=== PATIENT | female | born 1970 | race American Indian/Alaskan Native ===

== ENCOUNTER 2019-03-01 05:55 | Observation (INO) | payer OTHER ==
--- NOTE | 2019-02-21 11:10 | Anesthesia Consultation ---
Anesthesia Consult and Med Hx Date of service: 02/21/19 - Airway Anesthetic Teeth Evaluation: Dentures ROM Head & Neck: Adequate Mental/Hyoid Distance: Adequate Mallampati Class: Class II Intubation Access Assessment: Good - Pulmonary Exam CTA: Yes - Cardiac Exam Cardiac Exam: RRR - Pre-Operative Health Status ASA Pre-Surgery Classification: ASA2 Proposed Anesthetic Plan: General Nerve Block: Possible TAP Block - Pulmonary Hx Smoking: Yes (1/2 pack a day ) - Cardiovascular System Hx Hypertension: No - Central Nervous System Hx Psychiatric Problems: No - Other Systems Hx Alcohol Use: Yes (Occas) Hx Substance Use: Yes (Occas marijuana) Hx Cancer: No
[2019-02-21 11:13] LABS: BUN/Creatinine Ratio 16; Blood Urea Nitrogen 11 mg/dL (7-17); Calcium 8.6 mg/dL (8.4-10.2); Hematocrit 31.3 % (30.3-42.9); Hemoglobin 9.7 gm/dl (10.1-14.3); Hemolysis Index 7; Mean Corpuscular HGB Conc 31 % (30-34); Mean Corpuscular Volume 80 fl (79-97); Platelet Count 296 K/mm3 (140-440); Red Blood Count 3.92 M/mm3 (3.65-5.03); Red Cell Distribution Width 18.2 % (13.2-15.2)
[2019-02-21 12:27] LABS: Basophils % (Manual) 0 % (0.0-1.8); Eosinophils % (Manual) 0 % (0.0-4.3); Total Cells Counted 100
[2019-02-21 12:29] LABS: Anisocytosis Few; Ovalocytes Few; Platelet Estimate Consistent w Auto; Poikilocytosis Few
--- NOTE | 2019-02-28 15:11 | History and Physical Report ---
History of Present Illness Date of examination: 02/21/19 History of present illness: Patient has been reassessed/reevaluated. H&P has been reviewed. No interval changes. This is a 48 years old female who presents with menstrual disorder. The symptoms began 4-6 months ago. She complains of heavy bleeding, dysmenorrhea, clotting, history of fibroids, fatigue and cramping, but denies irregular menses, mid-cycle spotting, lack of menses, history of ovarian cysts, history of thyroid disease, history of PCOS, history of bleeding disorder and lightheadedness. Menstrual flow lasts > 7 days. . She complains of pelvic pressure. Patient's work up has included an US of pelvis. which revealed a 7.2 cm myoma. Patient's symptoms when present disrupts her normal daily activities Patient desires definitive treatment Vital Signs: Patient Profile: 48 Years Old Female Height: 69 inches (175.26 cm) Weight: 186 pounds (84.55 kg) BMI: 27.46 BSA: 2.00 Past History : 3 Term Births: 1 Premature Births: 0 Living Children: 1 Para: 1 Mult. Births: 0 Prev : 0 Aborta: 2 Elect. Ab: 1 Spont. Ab: 1 Ectopics: 0 # 1 Weeks Gestation: 40 Delivery type: Infant Sex: Male weight: 8; [employer] History Uterine Surgery (not C/S): negative Operations: D&C:EAb Hospitalizations: negative Anesthesia Complications: negative Abnormal PAP: negative Uterine Anomaly: positive fibroids LISHA Exposure: negative Infertility: negative Infection History HIV Risk Eval: no Personal hx. of genital herpes: no Hx of STD: chlamydia Current Allergies (reviewed today): No known allergies Past Medical History: hyadrenitis Fibroids Past Surgical History: D&C:EAB Family History Summary: Mother (biol.) - Has Family History Breast Cancer - mother dx age 55. chemo, rt lumpectomy, now 65 alive - Entered On: 10/21/2016 Mother (biol.) - Has Family History of Hypertension - mother and maternal side of family - Entered On: 10/21/2016 Mother (biol.) - Has Family History of Diabetes - mother and mat aunt. t2dm - Entered On: 10/21/2016 Social History: Patient is single Smoking History: Patient currently smokes every day. Risk Factors: Smoked Tobacco Use: Current every day smoker Smokeless Tobacco Use: Never Passive smoke exposure: yes Drug use: no HIV high-risk behavior: no Alcohol use: yes Exercise: yes Seatbelt use: 100 % Review of Systems General Complains of fatigue. Denies fever, chills, sweats, anorexia, weakness, malaise, weight loss and sleep disorder. Complains of menorrhagia, pelvic pain and painful periods. Denies vaginal discharge, incontinence, dysuria, hematuria, urinary frequency, amenorrhea, abnormal vaginal bleeding, genital sores, decreased libido, painful sex, urinary urgency, hot flashes, vaginal dryness, vaginal itching and vaginal odor. CV Denies chest pains, palpitations, syncope, dyspnea on exertion, orthopnea, PND and peripheral edema. Resp Denies cough, dyspnea at rest, excessive sputum, hemoptysis, wheezing and pleurisy. GI Denies nausea, vomiting, diarrhea, constipation, change in bowel habits, abdominal pain, melena, hematochezia, jaundice, gas/bloating, indigestion/heartburn, dysphagia and odynophagia. Breast Denies left breast lump, right breast lump, nipple discharge, bloody discharge from nipple, breast pain, abnormal mammogram and breast enlargement. Psych Denies depression, anxiety, irritability and mood swings. Past History Past Medical History: other (SEE HPI) Past Surgical History: Other (SEE HPI) Social history: single, smoking, full code, other (SEE HPI) Family history: other (SEE HPI) Medications and Allergies Allergies Allergy/AdvReac Type Severity Reaction Status Date / Time No Known Allergies Allergy Verified 02/21/19 11:17 Home Medications Medication Instructions Recorded Confirmed Last Taken Type Norgestimate-Ethinyl Estradiol 1 tab PO DAILY 02/20/19 03/01/19 03/01/19 04:45 History [Sprintec 28 Day Tablet] Active Meds: Active Medications Celecoxib (Celebrex) 200 mg PO PREOP NR Stop: 03/01/19 22:00 Fentanyl (Sublimaze) 100 mcg IV ONCE PRN PRN Reason: sedation for nerve block Gabapentin (Neurontin) 300 mg PO PREOP NR Stop: 03/01/19 23:59 Lactated Ringer's (Lactated Ringers) 1,000 mls @ 100 mls/hr IV DIRECT BRYANT Midazolam HCl (Versed) 2 mg IV PREOP NR Stop: 03/01/19 23:59 Review of Systems Constitutional: other (SEE HPI) Exam - Physical Exam Narrative exam: HEENT: normocephalic, no lesions or deformities Skin no ulcers, xanthomas Breasts: no masses or nipple discharge Abdomen: soft, non-tender, no masses, bowel sounds normal Neuro: no gross anomalities Extremities: no clubbing, cyanosis, or edema [employer] Exams Vulva/Vagina: normal appearance, no discharge, lesions. No evidence of cystocele or rectocele. Cervix: normal appearance, no lesions, no discharge Uterus: Enlarged uterus 12 to 14 weeks size Adnexae: no masses or tenderness Rectovaginal: exam defered - Constitutional Vitals: Temp Pulse Resp BP Pulse Ox 98.7 F 64 20 128/82 100 02/21/19 10:46 02/21/19 10:46 02/21/19 10:46 02/21/19 10:46 02/21/19 10:46 Results - Labs CBC & Chem 7: 02/21/19 10:30 02/21/19 10:30 Assessment and Plan - Patient Problems (1) Intramural leiomyoma of uterus Current Visit: No Status: Acute Plan to address problem: Diagnosis explained to patient . Questions answered. Discussed with patient various medical, surgical and radiological therapies common for treatment including myomectomy hysterectomy and uterine artery embolization Patient's symptoms when present disrupts her normal daily activities Patient desires definitive treatment. .Patient desires to retain future fertility. She desires myomectomy. Discussed risks and benefits of laparotomy and robotic assisted approaches Patient desires robotic assisted myomectomy Discuss the risks of the surgery including infection, bleeding possibly heavy enough to require a blood transfusion, possible damage to bowel, bladder or ureter. Patient understands that there is a possibility that a hysterectomy maybe indicated for severe bleeding not resoved with conservative measures.Patient advised the small risks of spreading of malignancy if morcellator is used during the surgery patient understands and approve of use if necessary. All her questions were answered. Patient understands and desires to proceed. (2) Menorrhagia Current Visit: No Status: Acute Qualifiers: Menorrahagia type: with regular cycle Qualified Code(s): N92.0 - Excessive and frequent menstruation with regular cycle Plan to address problem: Probably secondary to # 1 (3) Hidradenitis suppurativa Current Visit: No Status: Chronic (4) Smoker Current Visit: No Status: Chronic
[~2019-03-01 05:55] MED LIST: GABAPENTIN 300 MG CAP PO NR; LACTATED RINGERS 1,000 ML IV SCH; MIDAZOLAM 2 MG/2 ML INJ IV NR; ceFAZolin/Water 2 GM/20 ML 2 GM/20 ML SYRINGE IV NR
[2019-03-01] MEDS ORDERED: LACTATED RINGERS 1,000 ML IV SCH (06:00)
[2019-03-01] MEDS ORDERED: GABAPENTIN 300 MG CAP PO NR (06:00)
[2019-03-01] MEDS ORDERED: MIDAZOLAM 2 MG/2 ML INJ IV NR (06:00)
[2019-03-01] MEDS ORDERED: fentaNYL 100 MCG/2 ML INJ IV PRN (06:00)
[2019-03-01] MEDS ORDERED: CELECOXIB 200 MG CAP PO NR (06:00)
[2019-03-01] MEDS ORDERED: ceFAZolin/Water 2 GM/20 ML 2 GM/20 ML SYRINGE IV NR (08:00)
[2019-03-01] MEDS ORDERED: BUPIVACAINE-EPINEPHRINE/PF 0.25%-1:200,000 (30 ML) VIAL INFILTRATI ONE ×2 (08:10→08:14)
[2019-03-01] MEDS ORDERED: VASOPRESSIN 20 UNIT/1 ML INJ ONE (08:10)
[2019-03-01] MEDS ORDERED: SODIUM CHLORIDE 0.9% 100 ML ONE (08:10)
[2019-03-01] MEDS ORDERED: dexAMETHasone 4 MG/ML VIAL ONE (08:13)
[2019-03-01] MEDS ORDERED: LIDOCAINE (1%) 10 MG/1 ML VIAL 20 ML MDV ONE (08:13)
[2019-03-01] MEDS ORDERED: HYDROmorphone 1 MG/1 ML INJ ONE (08:15)
[2019-03-01] MEDS ORDERED: PROPOFOL 200 MG/20 ML VIAL IV ONE (08:16)
[2019-03-01] MEDS ORDERED: LIDOCAINE MPF (2%) 20 MG/1 ML VIAL 5 ML ONE (08:16)
[2019-03-01] MEDS ORDERED: ROCURONIUM 50 MG/5 ML INJ IV ONE (08:16)
[2019-03-01] MEDS ORDERED: CITRIC ACID-SOD CITRATE 500 ML IV ONE (08:24)
--- NOTE | 2019-03-01 08:29 | Anesthesia Day of Surgery ---
Anesthesia Day of Surgery - Day of Surgery Patient Examined: Yes Patient H&P Reviewed: Yes Patient is NPO: Yes
[2019-03-01] MEDS ORDERED: VASOPRESSIN 20 UNIT/1 ML INJ IM ONE (09:51)
[2019-03-01] MEDS ORDERED: SODIUM CHLORIDE 0.9% IRRIG SOLN 2000 ML IR ONE (09:52)
[2019-03-01] MEDS ORDERED: SODIUM CHLORIDE 0.9% 100 ML IVPB IV ONE (09:52)
[2019-03-01] MEDS ORDERED: dexAMETHasone 20 MG/5 ML VIAL ONE (10:22)
[2019-03-01] MEDS ORDERED: ONDANSETRON 4 MG/2 ML INJ ONE (10:23)
[2019-03-01] MEDS ORDERED: GLYCOPYRROLATE 0.4 MG/2 ML INJ ONE (10:58)
[2019-03-01] MEDS ORDERED: NEOSTIGMINE 10MG/10 ML INJ MDV ONE (10:58)
--- NOTE | 2019-03-01 11:30 | Operative Report ---
Operative Report Operative Report: Date of procedure: 03/01/2019 Pre-operative diagnosis: Symptomatic leiomyomata Post-operative diagnosis: Same Procedure name(s): Robotic-assisted myomectomy Surgeon: Nghia Rodriguez MD Still Operator Whiskey: Jie Fontenot, certified court/medical interpreter Anesthesia: General EBL: 50 mL Complications: None Findings: Patient had a uterus approximately 14-16 weeks in size with 1 large myoma approximately 7-1/2 cm in diameter and normal. Tubes and ovaries bilaterally Specimen(s): Leiomyomata Procedure: Patient taken operating room where general endotracheal anesthesia was induced difficulty. She was placed in dorsal lithotomy position prepped and draped in usual normal sterile fashion for robotic procedure. A Mosley catheter was placed in urinary bladder without difficulty. Speculum placed in the vagina. A medium Genapsys V care uterine manipulator was placed without any difficulty. Then attention was switched to the patient's abdomen. Supra-umbilical incision was made with a knife. Spread with a hemostat. A 10-12 Trocar was placed in this incision while lifting out anterior abdominal wall under direct visualization. Intra-abdominal cavity was entered without any evidence of internal organ damage. Patient was insufflated approximately 3 and half liters of CO2 gas. Patient's pelvic findings noted above. The patient was perceived to be a candidate for robotic procedure. On either side of the midline trocar placement approximately 8 cm from the trocar the 8 mm robotic trocars was placed under direct visualization with no signs of internal organ damage. Still Operator Whiskey ports were placed on the right lower quadrant 2 fingerbreadths above the iliac crest 10-12 trocar. The third 8 millimeter trocar for robotic arm was placed left lower quadrant under direct visualization with no evidence of internal organ damage patient was then placed in extreme Trendelenburg. At this time the da Kianna robot was that on the patient's left side and normal fashion. At that time I my place under the operating brar. Pitressin was then placed to the base of the large myoma approximately 20 mL. I incised the serosa midline above the anterior myoma. The myoma was then removed from its bed using the robotic scissors by incising through the capsule and manipulating it using both the gynecological assistant port tenaculum and the tenaculum placed on the robotic third arm. The myoma was successfully removed with minimal bleeding. This large myoma was in place and patient's anterior cul-de-sac. The endometrial cavity was entered with removal of the myoma. At this time try to discover any other myomas but I did detect any others. The defect was closed in layers using #1 Vicryl with care not to enter the endometrial cavity. The serosal layer was closed using a baseball stitch to try to minimize postoperative adhesions. This closure was hemostatic. Dennise was then placed over the incision to assist with preventing postoperative bleeding. Also Interceed was place over the incision in order to minimize postoperative adhesions. Attention was then switched to the myoma. The morcellator was placed through the gynecological assistant port. The myoma was then successfully morcellated with only minimal spillage portions of the myoma. Small portions of bone were then grasped Grassel also removed through the gynecological assistant port. The patient's pelvic copiously irrigated and suctioned. The incision was inspected and found be hemostatic. All instruments were then removed. The trocar incisions were closed. The larger incision closed in layers with 0 Vicryl and 4-0 Monocryl. Small incision closed subcuticular with 4-0 Monocryl. The patient tolerated procedure well. She was awakened in operating room and accompanied to recovery room in good condition.
[2019-03-01] MEDS: HYDROmorphone 1 MG/1 ML INJ IV PRN ×2 (12:13→12:23)
[2019-03-01] MEDS ORDERED: LACTATED RINGERS 1,000 ML ONE (12:22)
[2019-03-01] MEDS ORDERED: MAGNESIUM HYDROXIDE (MOM) ORAL LIQD UDC PO PRN (13:45)
--- NOTE | 2019-03-01 14:18 | Post Anesthesia Evaluation ---
- Post Anesthesia Evaluation Patient Participated: Yes Airway Patent: Yes Stable Respiratory Function: Yes Nausea/Vomiting: No Temp > 96.8F: Yes Pain Manageable: Yes Adequeate Hydration: Yes Anesthesia Complications: No
[2019-03-01] MEDS: KETOROLAC 30 MG/1 ML INJ IV SCH ×2 (15:44→23:32)
--- NOTE | 2019-03-01 18:04 | Event Note ---
Date: 03/01/19 Day of surgery. Discuss operative findings with patient and questions answered. Patient without fever. Will ambulate in halls this evening. Good urine output. Will remove the Mosley catheter. Patient tolerating regular diet well We will continue routine postoperative care.
[2019-03-01] MEDS: D5W/LACTATED RINGERS 1,000 ML IV SCH (18:57)
[2019-03-01] MEDS: ceFAZolin/NS 1 GM/50 ML 1 GM/50 ML BAG IV SCH (21:21)
[2019-03-01] MEDS: DOCUSATE SODIUM 100 MG CAP PO SCH (21:22)
[2019-03-01] MEDS: HYDROcodone/ACETAMINOPHEN 5-325 MG TAB PO PRN (21:29)
[2019-03-02] MEDS: KETOROLAC 30 MG/1 ML INJ IV SCH (01:45)
[2019-03-02] MEDS: D5W/LACTATED RINGERS 1,000 ML IV SCH (02:53)
[2019-03-02 03:46] LABS: Hematocrit 26.8 % (30.3-42.9); Hemoglobin 8.4 gm/dl (10.1-14.3)
[2019-03-02] MEDS: ceFAZolin/NS 1 GM/50 ML 1 GM/50 ML BAG IV SCH (05:41)
[2019-03-02] MEDS: HYDROcodone/ACETAMINOPHEN 5-325 MG TAB PO PRN ×2 (05:42→09:34)
--- NOTE | 2019-03-02 09:10 | Short Stay Summary ---
Short Stay Documentation Date of service: 03/02/19 - History Past Medical History: other (SEE HPI) Past Surgical History: Other (SEE HPI) Social history: single, smoking, full code, other (SEE HPI) - Allergies and Medications Current Medications: Allergies No Known Allergies Allergy (Verified 02/21/19 11:17) Home Medications Medication Instructions Recorded Confirmed Last Taken Type Norgestimate-Ethinyl Estradiol 1 tab PO DAILY 02/20/19 03/01/19 03/01/19 04:45 History [Sprintec 28 Day Tablet] Ibuprofen [Motrin 800 MG tab] 800 mg PO Q6H PRN #30 tablet 03/01/19 Unknown Rx oxyCODONE /ACETAMINOPHEN [Percocet 1 - 2 tab PO Q4H PRN #20 tablet 03/01/19 Unknown Rx 5/325 mg] Ferrous Sulfate [Feosol 325 MG tab] 325 mg PO BID #60 tablet 03/02/19 Unknown Rx Active Medications Acetaminophen/Hydrocodone Bitart (Bayard 5/325) 2 each PO Q4H PRN PRN Reason: Pain, Moderate (4-6) Last Admin: 03/02/19 05:42 Dose: 2 each Documented by: Docusate Sodium (Colace) 100 mg PO BID BRYANT Last Admin: 03/01/19 21:22 Dose: 100 mg Documented by: Dextrose/Lactated Ringer's ([email or web address]) 1,000 mls @ 125 mls/hr IV DIRECT BRYANT Last Admin: 03/02/19 02:53 Dose: 125 mls/hr Documented by: Magnesium Hydroxide (Milk Of Magnesia) 30 ml PO Q4H PRN PRN Reason: Constipation - Physical exam General appearance: no acute distress HEENT: Atraumatic Breasts: deferred Heart: Regular rate Gastrointestinal: hypoactive bowel sounds, tenderness (appropriate postoperatively), distended (slightly) Female Genitourinary: deferred Rectal Exam: deferred Extremities: no ischemia Neurological: Normal gait, Normal speech, Strength at 5/5 X4 ext - Brief post op/procedure progress note Date of procedure: 03/02/19 (see operative note) - Hospital course Hospital course: Patient was admitted and underwent above procedure without complications. Her post operative course was benign she was afebrile throughout. Patient postoperative hematocrit was in an acceptable range. Patient had no orthostatic symptoms. Patient was tolerating regular diet and voiding without difficulty at time of discharge. Patient incision was healing well without evidence of infection. - Disposition Condition at discharge: Good Disposition: DC-01 TO HOME OR SELFCARE - Discharge Diagnoses (1) Intramural leiomyoma of uterus Status: Acute (2) Menorrhagia Status: Acute Qualifiers: Menorrahagia type: with regular cycle Qualified Code(s): N92.0 - Excessive and frequent menstruation with regular cycle (3) Hidradenitis suppurativa Status: Chronic (4) Smoker Status: Chronic Short Stay Discharge Plan Activity: advance as tolerated Diet: regular Wound: open to air Additional Instructions: Patient instructed no heavy lifting for 4 weeks. No intercourse for 8 weeks. Call office for fever, chills, nausea, vomiting or pain not controlled by pain medications. Ambulation is encouraged. Patient's call for heavy vaginal bleeding. Patient instructed to keep her scheduled post operative office appointment. Follow up with: ALESSANDRO HYDE MD [Primary Care Provider] - 7 Days Prescriptions: Ferrous Sulfate [Feosol 325 MG tab] 325 mg PO BID #60 tablet Ibuprofen [Motrin 800 MG tab] 800 mg PO Q6H PRN #30 tablet PRN Reason: Pain oxyCODONE /ACETAMINOPHEN [Percocet 5/325 mg] 1 - 2 tab PO Q4H PRN #20 tablet PRN Reason: Pain, Moderate
[2019-03-02] MEDS: DOCUSATE SODIUM 100 MG CAP PO SCH (09:34)
[2019-03-02 11:27] VITALS: BP 127/67
== END 2019-03-02 11:30 | disposition home or self-care (01) ==
LOC: OR 05:55 → OB 11:31
PROVIDERS: ADMIT Obstetrics & Gynecology; ATTEND Obstetrics & Gynecology
DX: D25.1 Intramural leiomyoma of uterus (principal); N92.0 Excessive and frequent menstruation with regular cycle; L73.2 Hidradenitis suppurativa; N94.6 Dysmenorrhea, unspecified; F17.200 Nicotine dependence, unspecified, uncomplicated; Z98.890 Other specified postprocedural states
CPT/HCPCS: 36415; 58545; 64450; 80048; 81025; 85007; 85014; 85018; 85025; 86850; 86900; 86901; 88305; 96365; 96366; 96375; 96376; A4217; C1765; C1782; G0378; J0690; J1100; J1170; J1885; J2250; J2405; J2704; J2710; J3010; J7120; J7121; S2900

== ENCOUNTER 2019-04-13 23:34 | Emergency (ER) | payer OTHER ==
[2019-04-14 01:04] LABS: Hematocrit 37.8 % (30.3-42.9); Hemoglobin 12.2 gm/dl (10.1-14.3); Mean Corpuscular HGB Conc 32 % (30-34); Mean Corpuscular Volume 81 fl (79-97); Platelet Count 256 K/mm3 (140-440); Red Blood Count 4.69 M/mm3 (3.65-5.03)
[2019-04-14 01:29] LABS: Alanine Aminotransferase 16 units/L (7-56); Albumin 4.2 g/dL (3.9-5); BUN/Creatinine Ratio 16; Blood Urea Nitrogen 13 mg/dL (7-17); Calcium 9.2 mg/dL (8.4-10.2); Hemolysis Index 2
[2019-04-14 02:48] LABS: Bacteria,Urine 1+ /HPF (Negative); Bilirubin,Urine NEG (Negative); Blood,Urine MOD (Negative); Color,Urine Yellow (Yellow); Mucus,Urine 3+ /HPF; Urobilinogen,Urine < 2.0 mg/dL (<2.0)
--- NOTE | 2019-04-14 03:47 | Emergency Department Report ---
ED Abdominal Pain HPI - General Chief Complaint: Abdominal Pain Stated Complaint: ABD PAIN Time Seen by Provider: 04/14/19 03:29 Source: patient Mode of arrival: Ambulatory Limitations: No Limitations - History of Present Illness Initial Comments: 48-year-old -K[place] female presents to the emergency room reporting that she started having abdominal pain and vomiting after eating a hamburger. Patient reports at the time the pain was constant and diffuse with sharp pain. Patient reports now she is not nauseated pain is improved last vomited at 12 AM. Patient denies any past medical history currently takes control and has no known drug allergies. MD Complaint: abdominal pain Onset/Timin -: hour(s) Location: diffuse Radiation: none Migration to: no migration Severity scale (0 -10): 9 Quality: sharp Consistency: constant Improves With: nothing Worsens With: nothing Context: possible food poisoning Associated Symptoms: nausea, vomiting. denies: diarrhea, fever, chills, constipation, dysuria, hematemesis, hematochezia - Related Data Home Medications Medication Instructions Recorded Confirmed Last Taken Norgestimate-Ethinyl Estradiol 1 tab PO DAILY 02/20/19 03/01/19 03/01/19 04:45 [Sprintec 28 Day Tablet] Previous Rx's Medication Instructions Recorded Last Taken Type Ibuprofen [Motrin 800 MG tab] 800 mg PO Q6H PRN #30 tablet 03/01/19 Unknown Rx oxyCODONE /ACETAMINOPHEN [Percocet 1 - 2 tab PO Q4H PRN #20 tablet 03/01/19 Unknown Rx 5/325 mg] Ferrous Sulfate [Feosol 325 MG tab] 325 mg PO BID #60 tablet 03/02/19 Unknown Rx Allergies Allergy/AdvReac Type Severity Reaction Status Date / Time No Known Allergies Allergy Verified 02/21/19 11:17 ED Review of Systems ROS: Stated complaint: ABD PAIN Other details as noted in HPI Comment: All other systems reviewed and negative ED Past Medical Hx - Past Medical History Previous Medical History?: Yes Hx Congestive Heart Failure: No Hx Diabetes: No Hx GERD: Yes (Infrequently) Hx Headaches / Migraines: Yes Hx Asthma: No Hx COPD: No - Surgical History Additional Surgical History: Fibroids - Social History Smoking Status: Current Every Day Smoker Substance Use Type: Marijuana - Medications Home Medications: Home Medications Medication Instructions Recorded Confirmed Last Taken Type Norgestimate-Ethinyl Estradiol 1 tab PO DAILY 02/20/19 03/01/19 03/01/19 04:45 History [Sprintec 28 Day Tablet] Ibuprofen [Motrin 800 MG tab] 800 mg PO Q6H PRN #30 tablet 03/01/19 Unknown Rx oxyCODONE /ACETAMINOPHEN [Percocet 1 - 2 tab PO Q4H PRN #20 tablet 03/01/19 Unknown Rx 5/325 mg] Ferrous Sulfate [Feosol 325 MG tab] 325 mg PO BID #60 tablet 03/02/19 Unknown Rx ED Physical Exam - General Limitations: No Limitations General appearance: alert, in no apparent distress - Head Head exam: Present: atraumatic, normocephalic - Eye Eye exam: Present: normal appearance - ENT ENT exam: Present: normal exam - Neck Neck exam: Present: normal inspection - Respiratory Respiratory exam: Present: normal lung sounds bilaterally. Absent: respiratory distress - Cardiovascular Cardiovascular Exam: Present: regular rate, normal rhythm. Absent: systolic murmur, diastolic murmur, rubs, gallop - GI/Abdominal GI/Abdominal exam: Present: soft, normal bowel sounds. Absent: distended, tenderness - Extremities Exam Extremities exam: Present: normal inspection - Neurological Exam Neurological exam: Present: alert, oriented X3 - Psychiatric Psychiatric exam: Present: normal affect, normal mood - Skin Skin exam: Present: warm, dry, intact, normal color. Absent: rash ED Course Vital Signs 04/13/19 04/14/19 23:57 04:10 Temperature 97.7 F Pulse Rate 66 81 Respiratory 20 18 Rate Blood Pressure 167/98 Blood Pressure 118/67 [Left] O2 Sat by Pulse 99 98 Oximetry ED Medical Decision Making - Lab Data Result diagrams: 04/14/19 00:37 04/14/19 00:37 Laboratory Tests 04/14/19 04/14/19 04/14/19 00:37 00:37 00:37 WBC 11.7 H RBC 4.69 Hgb 12.2 Hct 37.8 MCV 81 MCH 26 L MCHC 32 RDW 22.0 H Plt Count 256 Add Manual Diff Complete Total Counted 100 Seg Neuts % (Manual) 79.0 H Band Neutrophils % 0 Lymphocytes % (Manual) 17.0 Reactive Lymphs % (Man) 0 Monocytes % (Manual) 4.0 Eosinophils % (Manual) 0 Basophils % (Manual) 0 Metamyelocytes % 0 Myelocytes % 0 Promyelocytes % 0 Blast Cells % 0 Nucleated RBC % Not Reportable Seg Neutrophils # Man 9.2 H Band Neutrophils # 0.0 Lymphocytes # (Manual) 2.0 Abs React Lymphs (Man) 0.0 Monocytes # (Manual) 0.5 Eosinophils # (Manual) 0.0 Basophils # (Manual) 0.0 Metamyelocytes # 0.0 Myelocytes # 0.0 Promyelocytes # 0.0 Blast Cells # 0.0 WBC Morphology Not Reportable Hypersegmented Neuts Not Reportable Hyposegmented Neuts Not Reportable Hypogranular Neuts Not Reportable Smudge Cells Not Reportable Toxic Granulation Not Reportable Toxic Vacuolation Not Reportable Dohle Bodies Not Reportable Pelger-Huet Anomaly Not Reportable Gavino Rods Not Reportable Platelet Estimate Consistent w auto Clumped Platelets Not Reportable Plt Clumps, EDTA Not Reportable Large Platelets Not Reportable Giant Platelets Not Reportable Platelet Satelliting Not Reportable Plt Morphology Comment Not Reportable RBC Morphology Not Reportable Dimorphic RBCs Not Reportable Polychromasia Not Reportable Hypochromasia Not Reportable Poikilocytosis Not Reportable Anisocytosis Few Microcytosis Few Macrocytosis Not Reportable Spherocytes Not Reportable Pappenheimer Bodies Not Reportable Sickle Cells Not Reportable Target Cells Not Reportable Tear Drop Cells Not Reportable Ovalocytes Not Reportable Helmet Cells Not Reportable [place] Bodies Not Reportable [place] Rings Not Reportable Mayte Cells Not Reportable Bite Cells Not Reportable Crenated Cell Not Reportable Elliptocytes Few Acanthocytes (Spur) Not Reportable Rouleaux Not Reportable Hemoglobin C Crystals Not Reportable Schistocytes Not Reportable Malaria parasites Not Reportable Isaias Bodies Not Reportable Hem Pathologist Commnt No Sodium 139 Potassium 4.3 Chloride 102.5 Carbon Dioxide 23 Anion Gap 18 BUN 13 Creatinine 0.8 Estimated GFR > 60 BUN/Creatinine Ratio 16 Glucose 156 H Calcium 9.2 Total Bilirubin 0.20 AST 26 ALT 16 Alkaline Phosphatase 79 Total Protein 8.1 Albumin 4.2 Albumin/Globulin Ratio 1.1 HCG, Qual Negative Urine Color Urine Turbidity Urine pH Ur Specific Groom Urine Protein Urine Glucose (UA) Urine Ketones Urine Blood Urine Nitrite Urine Bilirubin Urine Urobilinogen Ur Leukocyte Esterase Urine WBC (Auto) Urine RBC (Auto) U Epithel Cells (Auto) Urine Bacteria (Auto) Urine Mucus 04/14/19 Unknown WBC RBC Hgb Hct MCV MCH MCHC RDW Plt Count Add Manual Diff Total Counted Seg Neuts % (Manual) Band Neutrophils % Lymphocytes % (Manual) Reactive Lymphs % (Man) Monocytes % (Manual) Eosinophils % (Manual) Basophils % (Manual) Metamyelocytes % Myelocytes % Promyelocytes % Blast Cells % Nucleated RBC % Seg Neutrophils # Man Band Neutrophils # Lymphocytes # (Manual) Abs React Lymphs (Man) Monocytes # (Manual) Eosinophils # (Manual) Basophils # (Manual) Metamyelocytes # Myelocytes # Promyelocytes # Blast Cells # WBC Morphology Hypersegmented Neuts Hyposegmented Neuts Hypogranular Neuts Smudge Cells Toxic Granulation Toxic Vacuolation Dohle Bodies Pelger-Huet Anomaly Gavino Rods Platelet Estimate Clumped Platelets Plt Clumps, EDTA Large Platelets Giant Platelets Platelet Satelliting Plt Morphology Comment RBC Morphology Dimorphic RBCs Polychromasia Hypochromasia Poikilocytosis Anisocytosis Microcytosis Macrocytosis Spherocytes Pappenheimer Bodies Sickle Cells Target Cells Tear Drop Cells Ovalocytes Helmet Cells [place] Bodies [place] Rings [place] Cells Bite Cells Crenated Cell Elliptocytes Acanthocytes (Spur) Rouleaux Hemoglobin C Crystals Schistocytes Malaria parasites Isaias Bodies Hem Pathologist Commnt Sodium Potassium Chloride Carbon Dioxide Anion Gap BUN Creatinine Estimated GFR BUN/Creatinine Ratio Glucose Calcium Total Bilirubin AST ALT Alkaline Phosphatase Total Protein Albumin Albumin/Globulin Ratio HCG, Qual Urine Color Yellow Urine Turbidity Cloudy Urine pH 8.0 H Ur Specific Groom 1.025 Urine Protein 30 mg/dl Urine Glucose (UA) Neg Urine Ketones Tr Urine Blood Mod Urine Nitrite Neg Urine Bilirubin Neg Urine Urobilinogen < 2.0 Ur Leukocyte Esterase Neg Urine WBC (Auto) 5.0 Urine RBC (Auto) 129.0 U Epithel Cells (Auto) 12.0 Urine Bacteria (Auto) 1+ Urine Mucus 3+ - Medical Decision Making 48-year-old -[place] female presents to the emergency room reporting that she started having abdominal pain and vomiting after eating a hamburger. Patient reports at the time the pain was constant and diffuse with sharp pain. Patient reports now she is not nauseated pain is improved last vomited at 12 AM. Patient denies any past medical history currently takes control and has no known drug allergies. Critical care attestation.: If time is entered above; I have spent that time in minutes in the direct care of this critically ill patient, excluding procedure time. ED Disposition Clinical Impression: Abdominal pain Qualifiers: Abdominal location: generalized Qualified Code(s): R10.84 - Generalized abdominal pain Disposition: - TO HOME OR SELFCARE Is pt being admited?: No Does the pt Need Aspirin: No Condition: Stable Instructions: Abdominal Pain (ED) Additional Instructions: Please increase her fluid intake follow up with her primary care provider. Return back to the emergency room with worsening pain. Referrals: BERNARDO DOSS MD [Primary Care Provider] - 3-5 Days Forms: Work/School Release Form(ED)
[2019-04-14 04:14] VITALS: BP 118/67
[2019-04-14 04:37] LABS: Basophils % (Manual) 0 % (0.0-1.8); Eosinophils % (Manual) 0 % (0.0-4.3); Total Cells Counted 100
[2019-04-14 04:41] LABS: Anisocytosis Few
[2019-04-14 04:42] LABS: Platelet Estimate Consistent w Auto
== END 2019-04-14 04:10 | disposition home or self-care (01) ==
LOC: ED 23:34
DX: R10.84 Generalized abdominal pain (principal); R11.10 Vomiting, unspecified; K21.9 Gastro-esophageal reflux disease without esophagitis; G43.909 Migraine, unspecified, not intractable, without status migrainosus; F17.200 Nicotine dependence, unspecified, uncomplicated; F12.10 Cannabis abuse, uncomplicated; Z79.899 Other long term (current) drug therapy
CPT/HCPCS: 36415; 80053; 81001; 84703; 85007; 85025

== ENCOUNTER 2020-07-18 05:43 | Day surgery (SDC) | payer OTHER ==
--- NOTE | 2020-07-16 08:35 | History and Physical Report ---
History of Present Illness Date of examination: 07/14/20 History of present illness: Patient has been reassessed/reevaluated. H&P has been reviewed. No interval changes. 49 YO smoker Patient desires sterilization. Discussed with various methods of contraceptives including abstinence, barrier and hormonal. Discussed oral, implantable, dermal, injectable, intravaginal and intrauterine methods. Patient declined temporary contraceptives. Discuss the permanency of sterilization. High risk of regret and 0.5 to 1% risk of failure. Questions answered Patient understands and desires to proceed. Vital Signs: Patient Profile: 49 Years Old Female Height: 69 inches (175.26 cm) Weight: 190 pounds BMI: 28.06 Temp: 98.6 degrees F BP sittin / 70 (left arm) Date of Last Pap Smear: 11/29/2019 Past History : 3 Term Births: 1 Premature Births: 0 Living Children: 1 Para: 1 Mult. Births: 0 Prev : 0 Aborta: 2 Elect. Ab: 1 Spont. 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 of genital herpes: no Hx of STD: chlamydia Current Allergies: No known allergies Past Medical History: hyadrenitis Fibroids Past Surgical History: D&C:EAb Robotic Myomectomy (03/01/2019) Family History Summary: Mother - Has Family History of Diabetes - mother and mat aunt. t2dm - Entered On: 10/21/2016 Mother - Has Family History of Hypertension - mother and maternal side of family - Entered On: 10/21/2016 Mother - Has Family History Breast Cancer - mother dx age 55. chemo, rt lumpectomy, now 65 alive - Entered On: 10/21/2016 Social History: Patient is single Smoking History: Patient currently smokes every day. Risk Factors: Smoked Tobacco Use: Current every day smoker Smokeless Tobacco Use: Never Counseled to quit/cut down: no Passive smoke exposure: no Drug use: no HIV high-risk behavior: no Caffeine use: 2 drinks per day Alcohol use: no Exercise: no Seatbelt use: 100 % PAP Smear History: Date of Last PAP Smear: 11/29/2019 Review of Systems General Denies fever, chills, sweats, anorexia, fatigue, weakness, malaise, weight loss and sleep disorder. Denies vaginal discharge, incontinence, dysuria, hematuria, urinary frequency, amenorrhea, menorrhagia, abnormal vaginal bleeding, pelvic pain, genital sores, decreased libido, painful periods, painful sex, urinary urgency, hot flashes, vaginal dryness, vaginal itching and vaginal odor. CV Denies chest pains, palpitations, syncope, dyspnea on exertion, orthopnea, PND and peripheral edema. Resp Denies cough, dyspnea at rest, excessive sputum, hemoptysis, wheezing and pleurisy. GI Denies nausea, vomiting, diarrhea, constipation, change in bowel habits, abdominal pain, melena, hematochezia, jaundice, gas/bloating, indigestion/heartburn, dysphagia and odynophagia. Breast Denies left breast lump, right breast lump, nipple discharge, bloody discharge from nipple, breast pain, abnormal mammogram and breast enlargement. Psych Denies depression, anxiety, irritability and mood swings. Past History Past Medical History: other (SEE HPI FOR DETAILS) Past Surgical History: Other (SEE HPI FOR DETAILS) Social history: smoking (SEE HPI FOR DETAILS), full code, other Family history: other (SEE HPI FOR DETAILS) Medications and Allergies Allergies Allergy/AdvReac Type Severity Reaction Status Date / Time No Known Allergies Allergy Verified 07/11/20 14:43 Home Medications Medication Instructions Recorded Confirmed Last Taken Type No Known Home Medications [No 07/11/20 07/11/20 Unknown History Reported Home Medications] Review of Systems Constitutional: other (SEE HPI FOR DETAILS) Exam - Physical Exam Narrative exam: HEENT: normocephalic, no lesions or deformities Skin no ulcers, xanthomas .Tatoo(s) are present Chest: respiratory effort normal, clear to auscultation CV: regular, normal S1-S2, no murmur, no rub, no gallop Abdomen: Robotic surgical scars present normal bowel sounds, soft, nontender, no HSM Neuro: no gross anomalities Extremities: no clubbing, cyanosis, or edema .Tatoo(s) are present [employer] SERVICE ATTENDANT Exams Vulva/Vagina: normal appearance, no discharge, lesions. No evidence of cystocele or rectocele. Cervix: normal appearance, no lesions, no discharge Uterus: normal size and position, midline, mobile Adnexae: no masses or tenderness Rectovaginal: exam defered Assessment and Plan - Patient Problems (1) Encounter for sterilization Current Visit: No Status: Acute Plan to address problem: Patient desires sterilization.Discuss the permanency of sterilization. High risk of regret and 0.5 to 1% risk of failure. Discussed options of tubal blockage and salpingectomy and it's possible benefit of preventing ovarian cancer and increased risks of bleeding during the procedure. Discuss the risks of the surgery including infection, bleeding possibly heavy enough to require a blood transfusion, possilble damage to bowel, bladder or ureter. Patient understands and desires to proceed with tubal blockage. (2) Hidradenitis suppurativa Current Visit: No Status: Chronic (3) Smoker Current Visit: No Status: Chronic
[2020-07-18] MEDS ORDERED: ACETAMINOPHEN 500 MG TAB PO SCH (06:00)
[2020-07-18] MEDS ORDERED: CELECOXIB 200 MG CAP PO NR (06:00)
[2020-07-18] MEDS ORDERED: MIDAZOLAM 2 MG/2 ML INJ IV NR (06:00)
[2020-07-18] MEDS ORDERED: GABAPENTIN 300 MG CAP PO NR (06:00)
[2020-07-18] MEDS ORDERED: LACTATED RINGERS 1,000 ML IV SCH (06:00)
--- NOTE | 2020-07-18 07:16 | Anesthesia Consultation ---
Anesthesia Consult and Med Hx Date of service: 07/18/20 - Airway Anesthetic Teeth Evaluation: Dentures (upper), Partials (lower) ROM Head & Neck: Adequate Mental/Hyoid Distance: Adequate Mallampati Class: Class I Intubation Access Assessment: Good - Pre-Operative Health Status ASA Pre-Surgery Classification: ASA2 Proposed Anesthetic Plan: General - Pulmonary Hx Smoking: Yes (1/2 pack/day x 20years) Hx Asthma: No COPD: No Hx Pneumonia: No - Cardiovascular System Hx Hypertension: No - Central Nervous System Hx Psychiatric Problems: No - Endocrine Hx End Stage Renal Disease: No - Other Systems Hx Alcohol Use: Yes (Occas) Hx Substance Use: Yes (Marijuana occas, last yesterday) Hx Cancer: No
--- NOTE | 2020-07-18 07:17 | Anesthesia Day of Surgery ---
Anesthesia Day of Surgery - Day of Surgery Patient Examined: Yes Patient H&P Reviewed: Yes Patient is NPO: Yes
[2020-07-18] MEDS ORDERED: fentaNYL 100 MCG/2 ML INJ ONE (07:19)
[2020-07-18] MEDS ORDERED: propofoL 200 MG/20 ML VIAL IV ONE (07:19)
[2020-07-18] MEDS ORDERED: BUPIVACAINE/PF (0.5%) 5 MG/1 ML 10 ML VIAL INFILTRATI ONE ×2 (07:22→08:01)
[2020-07-18] MEDS ORDERED: LIDOCAINE MPF (2%) 20 MG/1 ML VIAL 5 ML ONE (07:49)
[2020-07-18] MEDS ORDERED: SUCCINYLCHOLINE CHLORIDE 200 MG/10 ML INJ MDV ONE (07:50)
[2020-07-18] MEDS ORDERED: ROCURONIUM 50 MG/5 ML INJ IV ONE (07:50)
[2020-07-18] MEDS ORDERED: KETOROLAC 30 MG/1 ML INJ ONE (08:00)
[2020-07-18] MEDS ORDERED: FAMOTIDINE 20 MG/2 ML INJ IV ONE (08:00)
[2020-07-18] MEDS ORDERED: FAMOTIDINE 20 MG/2 ML INJ IV NR (08:00)
[2020-07-18] MEDS ORDERED: GLYCOPYRROLATE 0.4 MG/2 ML INJ ONE ×2 (08:00→08:08)
[2020-07-18] MEDS ORDERED: SODIUM CHLORIDE 0.9% IRR 1,500 ML BOTTLE IR ONE (08:01)
[2020-07-18] MEDS ORDERED: dexAMETHasone 20 MG/5 ML VIAL ONE (08:08)
[2020-07-18] MEDS ORDERED: NEOSTIGMINE 10MG/10 ML INJ MDV ONE (08:08)
[2020-07-18] MEDS ORDERED: ONDANSETRON 4 MG/2 ML INJ ONE (08:08)
[2020-07-18] MEDS ORDERED: HYDROmorphone 1 MG/1 ML INJ ONE (08:34)
[2020-07-18] MEDS ORDERED: ONDANSETRON 4 MG/2 ML INJ IV PRN (08:39)
--- NOTE | 2020-07-18 08:40 | Operative Report ---
Operative Report Operative Report: Pre-operative diagnosis: Patient desires permanent sterilization Post-operative diagnosis: Same Procedure name(s): Laparoscopic bilateral tubal ligation with Falope-Rings Surgeon: Nghia Rodriguez MD Money Position Officer: [] Anesthesia: General endotracheal EBL: Minimal Complications: None Findings: Patient with uterus approximately 8 weeks in size with uterus well to myomectomy scar anterior fundus. Normal fallopian tubes bilaterally Specimen(s): None Patient was brought in the operating room. General anesthesia was induced without difficulty. She was placed in dorsal lithotomy position. Prepped and draped in usual sterile manner. Her urinary bladder with was emptied with a red rubber catheter. Speculum placed in her vagina and Sargis uterine manipulator was placed for uterine manipulation. Attention was then switched to the patient's abdomen. An infra-umbilical incision was made with a scalpel. This incision was spread with a hemostat. A 5 mm trocar was placed in this incision while lifting high the abdominal wall. Intra-abdominal presence was verified directly with the laparoscope. The patient was then insufflated to approximately 3 L of CO2 gas. The patient's findings as noted above. An accessory puncture was made suprapubically. The 8 mm trocar was placed through this incision under direct visualization with no evidence of internal organ damage. Each of the fallopian tube were identified by its fimbriated end. A portion approximately 1-2 cm from each cornua was grasped with the Falope ring applicator. Falope-Rings were placed without any difficulty bilaterally. At this time all instruments were removed. The patient was deinsufflated. The ski n incisions were closed subcuticular with 4-0 Vicryl. Marcaine was given subcuticularly for postoperative pain relief. The patient tolerated procedure well. She was awakened in the operating room and accompanied to the recovery room in good condition.
[2020-07-18] MEDS: HYDROmorphone 1 MG/1 ML INJ IV PRN ×2 (08:42→08:52)
--- NOTE | 2020-07-18 08:44 | Short Stay Summary ---
Short Stay Documentation Date of service: 07/18/20 - History Past Medical History: other (SEE HPI FOR DETAILS) Past Surgical History: Other (SEE HPI FOR DETAILS) Social history: smoking (SEE HPI FOR DETAILS), full code, other - Allergies and Medications Current Medications: Allergies No Known Allergies Allergy (Verified 07/11/20 14:43) Home Medications Medication Instructions Recorded Confirmed Last Taken Type oxyCODONE /ACETAMINOPHEN [Percocet 1 - 2 tab PO Q6HR PRN #10 tablet 07/18/20 Unknown Rx 5/325 mg] Active Medications Acetaminophen (Acetaminophen 500 Mg Tab) 1,000 mg PO PREOP BRYANT Stop: 07/18/20 23:59 Last Admin: 07/18/20 06:50 Dose: 1,000 mg Documented by: Celecoxib (Celecoxib 200 Mg Cap) 200 mg PO PREOP NR Stop: 07/18/20 23:59 Last Admin: 07/18/20 06:50 Dose: 200 mg Documented by: Famotidine (Famotidine 20 Mg/2 Ml Inj) 20 mg IV PREOP NR Stop: 07/18/20 23:00 Gabapentin (Gabapentin 300 Mg Cap) 300 mg PO PREOP NR Stop: 07/18/20 23:59 Last Admin: 07/18/20 06:50 Dose: 300 mg Documented by: Lactated Ringer's (Lactated Ringers) 1,000 mls @ 100 mls/hr IV DIRECT BRYANT Stop: 07/18/20 23:59 Last Admin: 07/18/20 07:05 Dose: 100 mls/hr Documented by: Midazolam HCl (Midazolam 2 Mg/2 Ml Inj) 2 mg IV PREOP NR Stop: 07/18/20 23:59 Last Admin: 07/18/20 07:41 Dose: 2 mg Documented by: - Physical exam General appearance: no acute distress Integumentary: no rash HEENT: Atraumatic Lungs: Normal air movement Breasts: deferred Heart: Regular rate Gastrointestinal: normal, other (Laparoscopic scars) Female Genitourinary: deferred Rectal Exam: deferred Extremities: no ischemia - Brief post op/procedure progress note Date of procedure: 07/18/20 (See dictated operative note for details) Condition: stable - Hospital course Hospital course: Patient was admitted underwent the above him procedure without any complications. Patient will be discharged with follow-up in office in 1-2 weeks for postop check. - Disposition Condition at discharge: Good Disposition: DC-01 TO HOME OR SELFCARE - Discharge Diagnoses (1) Encounter for sterilization Status: Acute (2) Hidradenitis suppurativa Status: Chronic (3) Smoker Status: Chronic Short Stay Discharge Plan Activity: advance as tolerated Diet: regular Wound: open to air Additional Instructions: Patient to call office for any fever, chills, nausea, vomiting or pain not controlled by pain medication. Follow up with: ALESSANDRO HYDE MD [Primary Care Provider] - 7 Days Prescriptions: oxyCODONE /ACETAMINOPHEN [Percocet 5/325 mg] 1 - 2 tab PO Q6HR PRN #10 tablet PRN Reason: Pain
[2020-07-18 09:32] VITALS: BP 129/72
== END 2020-07-18 10:00 | disposition home or self-care (01) ==
LOC: OR 05:43
PROVIDERS: ATTEND Obstetrics & Gynecology
DX: Z30.2 Encounter for sterilization (principal); G43.909 Migraine, unspecified, not intractable, without status migrainosus; K21.9 Gastro-esophageal reflux disease without esophagitis; F17.210 Nicotine dependence, cigarettes, uncomplicated; Z72.89 Other problems related to lifestyle; Z79.899 Other long term (current) drug therapy; Z98.890 Other specified postprocedural states
CPT/HCPCS: 58671; 81025; J0330; J1100; J1170; J1885; J2250; J2405; J2704; J2710; J3010; J7120